=== PATIENT | male | born 1975 | race Two or more races ===

== ENCOUNTER 2022-06-19 14:02 | Emergency (ER) | payer BC ==
[~2022-06-19] VITALS: Ht 170.2 cm; Wt 77.1 kg
--- NOTE | 2022-06-19 14:37 | NUR ---
Dr Montero at the bedside for MSE.
[2022-06-19] MEDS ORDERED: IV NORMAL SALINE 1000 ML BAG IV ONE (14:45)
[2022-06-19] MEDS ORDERED: KETOROLAC TROMETHAMINE 15 MG INJ IVP ONE (14:45)
[2022-06-19 15:04] LABS: HEMATOCRIT 39.6 % (36.7-47.1); MEAN CORPUSCULAR VOLUME 88.8 fL (73.0-96.2); PLATELET COUNT (AUTO) 194 K/uL (152-348)
[2022-06-19 15:20] LABS: CREATININE 0.8 mg/dL (0.6-1.3); MAGNESIUM 2.1 mg/dL (1.8-2.4)
--- NOTE | 2022-06-19 15:45 | NUR ---
Urine collected and sent to LAB.
[2022-06-19 16:05] LABS: *BILIRUBIN,URIN NEGATIVE (NEGATIVE); *BLOOD, URINE NEGATIVE (NEGATIVE); *CLARITY,URINE CLEAR (CLEAR); *COLOR,URINE YELLOW (YELLOW); *KETONES,URINE NEGATIVE (NEGATIVE); *UROBILINOGEN,URINE 0.2 E.U./dl (NORMAL); LEUKOCYTE ESTERASE ,URINE NEGATIVE (NEGATIVE); NITRITE, URINE NEGATIVE (NEGATIVE); PH,URINE 7.5 (5.0-8.0); UGLUCOSE NEGATIVE (NEGATIVE)
[2022-06-19] MEDS ORDERED: KETOROLAC TROMETHAMINE 15 MG INJ ONE (16:06)
[2022-06-19] MEDS ORDERED: PRED20TA PO (16:12)
[2022-06-19 16:38] VITALS: BP 104/60
--- NOTE | 2022-06-19 16:38 | NUR ---
IV removed. Catheter intact and site benign. Pressure and 4x4 gauze applied to site. No bleeding noted.
--- NOTE | 2022-06-19 16:39 | NUR ---
Patient discharged to home in stable condition. Written and verbal after care instructions given. Patient verbalizes understanding of instructions. Stressed follow up or return to ER for worsening s/s.
== END 2022-06-19 16:39 | disposition home or self-care (01) ==
LOC: ER 14:02
DX: M79.10 Myalgia, unspecified site (principal); R20.2 Paresthesia of skin; Z20.822 Contact with and (suspected) exposure to COVID-19
CPT/HCPCS: 99283; 96374; 96361; 87426; 87804 ×2; 80048; 81003; 82550; 83735; 84075; 84100; 84443; 85025; 36415; J1885; J7040; A4663